=== PATIENT | female | born 1975 | race Caucasian/White ===

== ENCOUNTER → 2023-06-20 08:15 | Outpatient (REF) | payer MEDICARE, SELFPAY | LOC: RAD 08:15 | PROVIDERS: ATTENDING PHYSICIAN Internal Medicine Hematology & Oncology | DX: C92.10 Chronic myeloid leukemia, BCR/ABL-positive, not having achieved remission (principal); R06.02 Shortness of breath | CPT/HCPCS: 71046 ==

== ENCOUNTER 2023-07-30 19:21 | Emergency (ER) | payer MEDICARE, SELFPAY ==
[2023-07-30 19:25] VITALS: BP 143/96
[2023-07-30 19:53] LABS: % Basophils 0.8 % (0-2); % Eosinophils 1.1 % (0-6); % Immature Granulocytes 0.4 % (0-0.5); % Lymphocytes 17.1 % (20.5-51.1); % Monocytes 8.8 % (1.7-9.3); % Neutrophils 71.8 % (42.2-75.2); Absolute Basophils 0.1 10^3/uL (0-0.2); Absolute Eosinophils 0.1 10^3/uL (0-0.7); Absolute Lymphocytes 1.2 10^3/uL (1.2-3.4); Absolute Monocytes 0.6 10^3/uL (0.1-0.6); Absolute Neutrophils 5.2 10^3/uL (1.4-6.5); Hematocrit 41.9 % (37.0-47.0); Hemoglobin 13.4 g/dL (12.0-16.0); Mean Corpuscular Volume 87.5 fL (81.0-99.0); Mean Platelet Volume 9.9 fL (7.4-10.4); Nucleated Red Blood Cells % 0 %; Platelet Count 238 10^3/uL (130-400); Red Blood Cell Count 4.79 10^6/uL (4.20-5.40); Red Cell Dist. Width 14.8 % (11.5-14.5); White Blood Cell Count 7.2 10^3/uL (4.8-10.8)
[2023-07-30 20:03] LABS: INR 0.98; PT 12.8 Sec (11.4-14.6)
[2023-07-30 20:05] LABS: HCG, Serum Qualitative Screen Negative
[2023-07-30 20:08] LABS: ALT (SGPT) 18 U/L (0-35); AST (SGOT) 25 U/L (14-36); Albumin 4.1 g/dl (3.5-5.0); Alkaline Phosphatase 84 U/L (38-126); Blood Urea Nitrogen 15 mg/dl (7-17); Carbon Dioxide 25 mmol/L (22-30); Chloride 105 mmol/L (98-107); Glucose 88 mg/dl (70-99); Potassium 4.2 mmol/L (3.5-5.1); Sodium 135 mmol/L (135-145); Total Bilirubin 0.7 mg/dl (0.2-1.3); Total Protein 6.8 g/dl (6.3-8.2); eGFR > 60.00
[2023-07-30 20:20] LABS: Troponin I < 0.012 ng/ml
--- NOTE | 2023-07-30 22:02 | ED.GENMED ---
History of Present Illness
General
Chief Complaint: Chest Pain
Source: patient
Exam Limitations: none
Time Seen by Provider: 07/30/23 21:26
Nursing documentation reviewed up to this point in time: agreed with
Travel History
Have you had any contact with someone who has COVID-19?: No
Do you have any symptoms of coronavirus? Fever > 100 degrees, chills, cough, shortness of breath, sore throat, loss of taste or smell, muscle aches, or headache?: No
History of Present Illness
History of Present Illness:
47 y/o F with h/o CML, SAMUEL, HTN, gerd, migraines
here with multipe complaints ongoin gfor 3 weeks
pt says she has been feeling 'not well.' fatigued, some headaches, chest pressure
she takes her bp daily and her readings are 120/110, 130/90, etc
she used to be on amlodipine 5 bid and clonidine at night but she stopped the clonidine a eyar ago because she didn't feel like she needed it
she says that she has noticed her bps were elevated and was thinking that was why she wasn't feeling wel
but then she did noticed that all symptoms were worse over the past 3 days
worse generalized headache, fatigue, and she felt
Past History
Past History
ED Past Medical History: Asthma, Fibromyalgia, GERD and Other (Low back pain, spondylosis, CML); Negative IDDM or NIDDM
ED Past Surgical History: Cholecystectomy and Other (carpal tunnel surgery)
Social History
Tobacco: Smoker
Alcohol: Occasional
Personal:
Living: with family
Employment: Employed
Family History
Family History: Hypertension and Cancer
Review of Systems
Review of Systems
Allergies reviewed?: Yes
All Other Systems: Not applicable
Phy Exam
Physical Exam
Physical Exam:
GENERAL: Alert , in no apparent distress
HEAD: NCAT
EYE: pupils equal and reactive
NECK: Supple
ENT: o/p clr, mmm.
CARDIAC: Regular rate and rhythm .
chest: nontender
LUNGS: Clear breath sounds bilaterally, no acute respiratory distress, no wheezes/rales/rhonchi
ABDOMEN: Soft, without focal tenderness, no r/g, no cvat, normal bowel sounds
NEUROLOGICAL: Alert and oriented, no focal neuro deficits, cn intact, 5/5 strength, sensation intact, no focal deficits
SKIN: Warm and dry, skin intact.
MUSCULOSKELETAL: No edema, well perfused. neg lachelle's sign
PSYCH: Normal and appropriate interaction.
Scores
Heart Score for Chest Pain Patients
STEMI patient?: No
History: Slightly or Non-Suspicious
ECG: Nonspecific Repolarization
Age: >45 - <65 years
Risk Factors: 1 or 2 Risk Factors
Troponin: </= Normal Limit
Heart Score for Chest Pain Patients: 3
Heart Score Risk: 2.5% MACE over next 6 weeks
Course
Orders/Labs/Results
Orders:
Orders
07/30/23 19:30
Electrocardiogram (*1) Urgent
Reason for Study: Chest Pain
07/30/23 19:31
EKG- Treatment ONCE
Test Result ONCE
07/30/23 19:45
Complete Blood Count/With Diff Urgent
Comprehensive Metabolic Panel Urgent
HCG, Serum Qualitative Screen Urgent
Monotest Urgent
Comment: ADD ON
Prothrombin Time Urgent
Troponin I Urgent
07/30/23 22:00
Add On- LAB Urgent
Tests Added?: mononucleosis
07/30/23 22:16
CT Head W/o Iv Contrast Urgent
Comment:
Reason For Exam: headache, left sided weaknes x3 days
Acetaminophen [Tylenol] 1,000 mg PO NOW STA
07/31/23 00:02
CR Chest - 2 Views Urgent
Reason For Exam: pain
Abnormal Lab Results
07/30/23
19:45
MCHC 32.0 L g/dL
(33.0-37.0)
RDW 14.8 H %
(11.5-14.5)
Lymphocytes % 17.1 L %
(20.5-51.1)
07/30/23 19:45
07/30/23 19:45
Vital Signs
Temp: 99.1 F
Pulse: 84
Blood pressure: 121/84
Initial and Last Documented VS:
Initial Vital Signs
Temp Pulse Resp BP Pulse Ox
99.9 F 97 18 143/96 99
07/30/23 19:25 07/30/23 19:25 07/30/23 19:25 07/30/23 19:25 07/30/23 19:25
Last Documented Vital Signs
Temp Pulse Resp BP Pulse Ox
98.0 F 85 16 134/90 97
07/31/23 00:55 07/31/23 00:55 07/31/23 00:55 07/31/23 00:55 07/31/23 00:55
MDM/Problems Addressed
Differential Diagnosis Includes:
htn, viral syndrome, mono, uri,
MDM/Problems Addressed:
47 y/o F with h/o CML, gerd, htn, migraines
here with weeks of symptoms of generalized fatigue, some headaches, some chest pain which causes left arm and left leg weakness;
as far as she knows her CML is stable
she has been documenting bps beuase she thought that was causing her sypmtoms
bps are 120/110, 130/90s
some of the readings are unlikely to be accurate
instructed her to get a new cuff
on exam here her bp for me is normal 120/80
she is well appearing though she says she has a 10/10 headache
neur onitact
also having some subjective left sided weakness the past 3 days along with ehr headache
all symtoms have been present for at least 3 days
her ekg is unchanged nonischemic
trop x 1 neg an dwith symptoms for days this is reassuring to r/u ACS
wbc normal
cxr read indep by me and neg, though maybe subtle atelectasis in the right base
no coughing or cold symptoms ot suggest pna
headache improved with tylenol
head ct rquested by pt and was neg
d/c home, fu wiht pcp.
*Critical Care Note
Total Time (30-74mins, 75-104mins- exclusive of procedures): Not Applicable
ED Attending Note
-
Portions of this chart may have been created with voice recognition software.� Occasional wrong word or��sound alike� substitutions may have occurred due to the inherent limitations of voice recognition software.
Discharge Plan
Departure
Patient Disposition: Home (Routine Discharge)
Date of Disposition: 07/31/23
Time of Disposition: 00:40
Patient with high blood pressure during this ER visit?: Yes
Condition: Fair
Discharge Problem:
Fatigue, Chest pain, Headache
Instructions: Fatigue (DC), Chest Pain (DC)
Prescriptions:
No Action
clonidine HCl 0.3 MG tablet
0.1 mg PO HS
amlodipine [Norvasc] 5 MG tablet
5 mg PO BID
amitriptyline 25 MG tablet
50 mg PO HS
dasatinib [Sprycel] 100 MG tablet
100 mg PO DAILY
oxycodone [OxyContin] 10 MG tablet,oral only,ext.rel.12 hr
10 - 20 mg PO Q4HPRN PRN (Reason: Severe Pain)
ergocalciferol (vitamin D2) 50 MCG capsule
50,000 units PO MO
prednisone 20 MG tablet
60 mg PO DAILY
furosemide 20 MG tablet
20 - 40 mg PO DAILY PRN (Reason: swelling)
albuterol sulfate 1 PUFF HFA aerosol inhaler
2 puff inhalation R Q4HPRN PRN (Reason: asthma)
pregabalin 100 MG capsule
100 mg PO BID
cholecalciferol (vitamin D3) 2,000 UNITS tablet
2,000 units PO BID
Symbicort Inhaler
1 puff inhalation PRN PRN (Reason: sickness)
Patient Comments:
does not know dosage
Referrals:
Miya Emerson CRNP [Family Provider] - Follow up in 2-3 days
Activity Restrictions/Additional Instructions:
WE ARE NOT SURE THE CAUSE OF YOUR SYMPTOMS
YOU HAD NO SIGNS OF HEART ATTACK, STROKE, YOUR BLOOD WORK WAS NORMAL AND YOUR BLOOD PRESSURE CAME DOWN
MAKE SURE TO REPLACE YOUR BLOOD PRESSURE CUFF BECAUSE YOUR READINGS MAY BE OFF
FOLLOW UP WIHT YOUR ONCOLOGIST AND YOUR FAMILY DOCTOR FOR YOUR SYMPTOMS
RETURN FOR ANY CONCERNS.
Interventions
Interventions:
*Risk Screen - Suicide Last Done: 07/30/23 19:29
*General Assessment Last Done: 07/30/23 19:25
*Neglect/Abuse Screening Last Done: 07/30/23 19:25
ED- Fall Risk Assessment Last Done: 07/30/23 22:23
*ED COVID-19 Vaccine History Last Done: 07/30/23 23:23
*Nursing Disposition Last Done: 07/31/23 00:55
ED- Cardiac Assessment Last Done: 07/30/23 22:23
Discharge Date and Time
Discharge Date/Time: 07/31/23 00:56
[2023-07-30 22:23] VITALS: BMI 42.6
[2023-07-30] MEDS: TYLENOL 1000 MG PO (22:35)
[2023-07-30 22:40] LABS: Monotest Negative (Negative)
[2023-07-31 00:55] VITALS: BP 134/90
== END 2023-07-31 00:56 | disposition home or self-care (01) ==
LOC: EMR 19:21
PROVIDERS: Emergency Medicine; EMERGENCY PHYSICIAN Emergency Medicine; FAMILY PHYSICIAN Nurse Practitioner Family
DX: R07.89 Other chest pain (principal); C92.10 Chronic myeloid leukemia, BCR/ABL-positive, not having achieved remission; K75.81 Nonalcoholic steatohepatitis (NASH); I10 Essential (primary) hypertension; J45.909 Unspecified asthma, uncomplicated; M79.7 Fibromyalgia; K21.9 Gastro-esophageal reflux disease without esophagitis; Z82.49 Family history of ischemic heart disease and other diseases of the circulatory system; Z90.49 Acquired absence of other specified parts of digestive tract; F17.200 Nicotine dependence, unspecified, uncomplicated
CPT/HCPCS: 99284; 70450; 71046; 80053; 84484; 84703; 85025; 85610; 86308; 93005

== ENCOUNTER 2024-04-24 20:42 | Emergency (ER) | payer MEDICARE, SELFPAY ==
[2024-04-24 21:00] VITALS: BP 146/101
[2024-04-24 21:38] LABS: % Basophils 0.9 % (0-2); % Immature Granulocytes 0.3 % (0-0.5); % Lymphocytes 27.7 % (20.5-51.1); % Monocytes 7.3 % (1.7-9.3); % Neutrophils 60.8 % (42.2-75.2); Absolute Basophils 0.1 10^3/uL (0-0.2); Absolute Eosinophils 0.3 10^3/uL (0-0.7); Absolute Monocytes 0.8 10^3/uL (0.1-0.6); Absolute Neutrophils 6.6 10^3/uL (1.4-6.5); Hematocrit 41.3 % (37.0-47.0); Hemoglobin 13.4 g/dL (12.0-16.0); Mean Corp Hgb Conc. 32.4 g/dL (33.0-37.0); Mean Corpuscular Hgb 28.9 pg (27.0-31.0); Mean Corpuscular Volume 89.2 fL (81.0-99.0); Nucleated Red Blood Cells % 0 %; Platelet Count 321 10^3/uL (130-400); Red Blood Cell Count 4.63 10^6/uL (4.20-5.40); Red Cell Dist. Width 14.3 % (11.5-14.5); White Blood Cell Count 10.8 10^3/uL (4.8-10.8)
[2024-04-24 21:49] LABS: Urine Albumin Negative (Neg - Trace); Urine Bilirubin Negative (Negative); Urine Character Clear (Clear); Urine Color Straw; Urine Glucose Negative (Negative); Urine Ketone Negative (Negative); Urine Leukocyte Negative (Negative); Urine Nitrite Negative (Negative); Urine Occult Blood Negative (Negative); Urine Urobilinogen Negative (Neg - 1+)
[2024-04-24 22:04] LABS: ALT (SGPT) 20 U/L (0-35); AST (SGOT) 22 U/L (14-36); Albumin 4.4 g/dl (3.5-5.0); Alkaline Phosphatase 69 U/L (38-126); Blood Urea Nitrogen 11 mg/dl (7-17); Carbon Dioxide 32 mmol/L (22-30); Chloride 100 mmol/L (98-107); Glucose 102 mg/dl (70-99); Potassium 3.9 mmol/L (3.5-5.1); Sodium 139 mmol/L (135-145); Total Bilirubin 0.7 mg/dl (0.2-1.3); Total Protein 7.1 g/dl (6.3-8.2); Troponin I < 0.012 ng/ml; eGFR > 60.00
[2024-04-24 23:20] VITALS: BP 142/96
[2024-04-25] VITALS: BP 137/87
--- NOTE | 2024-04-25 00:16 | ED.GENMED ---
History of Present Illness
<JIMI Cho - Last Filed: 04/25/24 00:41>
General
Chief Complaint: Blood Pressure Problem
Source: patient
Time Seen by Provider: 04/25/24 00:02
Nursing documentation reviewed up to this point in time: agreed with
History of Present Illness
History of Present Illness:
Pt is a 48 yo F with a history of HTN, migraines, asthma, and GERD who presents to the emergency department for elevated blood pressure and chest pain. Pt states that her symptoms began about 3 weeks ago and that they have not been improving. She
states that at home she checked her BP and the readings have been in the 140s-150s/90s-100s. She states that when her BP is elevated, she has chest pain that radiates down to her left arm and left leg and has blurry vision. She states that currently
her chest feels like a pressure on her chest and rates it a 6/10. Pt also admits to having dyspnea and abdominal pain when she has the chest pain. Pt states that her symptoms are worse during activity and improve with rest. She denies fever, chills,
N/V/D, recent illness, or experiencing this before.
Pt states that she used to see cardiology and take amlodipine and clonidine. She states she has not taken the blood pressure medications in years as her doctor told her she didn't need to take them anymore.
In ED, patient's initial BP was 146/101
Past History
<JIMI Cho - Last Filed: 04/25/24 00:41>
Past History
ED Past Medical History: Asthma, Fibromyalgia, GERD and Other (Low back pain, spondylosis, CML); Negative IDDM or NIDDM
ED Past Surgical History: Cholecystectomy and Other (carpal tunnel surgery)
Social History
Tobacco: Smoker
Alcohol: Occasional
Personal:
Living: with family
Employment: Employed
Family History
Family History: Hypertension and Cancer
Review of Systems
<Breanna Arredondo [facility] [place] - Last Filed: 04/25/24 00:41>
Review of Systems
Allergies reviewed?: Yes
Constitutional: Reports no symptoms
EENT: Reports no symptoms
Respiratory: Reports no symptoms
Cardiac: Reports chest pain and other (shortness of breath)
ABD/GI: Reports abdominal pain
: Reports no symptoms
Phy Exam
<Breanna Arredondo [facility] [place] - Last Filed: 04/25/24 00:41>
General Physical Exam
General Presentation: well appearing and no apparent distress
General age: appears stated age
General Skin: warm
General Habitus: normal
General Mental: alert
General Hydration: appears well hydrated
Cardiovascular Exam
Cardiovascular Exam: regular rate/rhythm
Pulmonary Exam
Pulmonary Exam: lungs clear
Gastrointestinal Exam
Gastrointestinal Exam: non tender, soft and non distended
Course
<Breanna Arredondo [facility] [place] - Last Filed: 04/25/24 00:41>
Orders/Labs/Results
Orders:
Orders
04/24/24 20:43
EKG [Electrocardiogram (*1)] Urgent
Reason for Study: Chest Pain
EKG- Treatment ONCE
04/24/24 21:18
Complete Blood Count/With Diff Urgent
Comprehensive Metabolic Panel Urgent
Troponin I Urgent
UA Reflex to Culture [Urinalysis Reflex To Culture] Urgent
Date Specimen was Collected: 04/24/24
Time Specimen was Collected: 21:04
Abnormal Lab Results
04/24/24
21:18
MCHC 32.4 L g/dL
(33.0-37.0)
Absolute Neuts (auto) 6.6 H 10^3/uL
(1.4-6.5)
Absolute Monos (auto) 0.8 H 10^3/uL
(0.1-0.6)
Carbon Dioxide 32 H mmol/L
(22-30)
Glucose 102 H mg/dl
(70-99)
04/24/24 21:18
04/24/24 21:18
Vital Signs
Initial and Last Documented VS:
Initial Vital Signs
Temp Pulse Resp BP Pulse Ox
98.2 F 88 16 146/101 100
04/24/24 21:00 04/24/24 21:00 04/24/24 21:00 04/24/24 21:00 04/24/24 21:00
Last Documented Vital Signs
Temp Pulse Resp BP Pulse Ox
98.2 F 73 34 137/87 99
04/24/24 21:00 04/25/24 00:00 04/25/24 00:00 04/25/24 00:00 04/25/24 00:00
<Shweta Srinivasan, DO - Last Filed: 04/25/24 00:59>
Orders/Labs/Results
Orders:
Orders
04/24/24 20:43
EKG [Electrocardiogram (*1)] Urgent
Reason for Study: Chest Pain
EKG- Treatment ONCE
04/24/24 21:18
Complete Blood Count/With Diff Urgent
Comprehensive Metabolic Panel Urgent
Troponin I Urgent
UA Reflex to Culture [Urinalysis Reflex To Culture] Urgent
Date Specimen was Collected: 04/24/24
Time Specimen was Collected: 21:04
Abnormal Lab Results
04/24/24
21:18
MCHC 32.4 L g/dL
(33.0-37.0)
Absolute Neuts (auto) 6.6 H 10^3/uL
(1.4-6.5)
Absolute Monos (auto) 0.8 H 10^3/uL
(0.1-0.6)
Carbon Dioxide 32 H mmol/L
(22-30)
Glucose 102 H mg/dl
(70-99)
04/24/24 21:18
04/24/24 21:18
Vital Signs
Initial and Last Documented VS:
Initial Vital Signs
Temp Pulse Resp BP Pulse Ox
98.2 F 88 16 146/101 100
04/24/24 21:00 04/24/24 21:00 04/24/24 21:00 04/24/24 21:00 04/24/24 21:00
Last Documented Vital Signs
Temp Pulse Resp BP Pulse Ox
98.2 F 73 34 137/87 99
04/24/24 21:00 04/25/24 00:00 04/25/24 00:00 04/25/24 00:00 04/25/24 00:00
<JIMI Cho - Last Filed: 04/25/24 00:41>
MDM/Problems Addressed
Differential Diagnosis Includes:
ACS, ND, GERD
<JIMI Cho - Last Filed: 04/25/24 00:41>
*Critical Care Note
Total Time (30-74mins, 75-104mins- exclusive of procedures): Not Applicable
<Shweta Srinivasan DO - Last Filed: 04/25/24 00:59>
*Pulse Oximetry
Patient hypoxic: no
*EKG
Interpreted by ED Provider?: Yes
Interpretation: normal
Comparison EKG: no changes (Unchanged from previous July 2023)
Rate: normal
Rhythm: sinus
[place]: normal axis
Interval: normal interval
QRS Pattern: normal QRS
Ischemia: no ischemia
*Sql Ssrs Developer Interpretation
Rate: normal
Interpretation: normal
Rhythm: sinus
ED Attending Note
<JIMI Cho - Last Filed: 04/25/24 00:41>
-
Portions of this chart may have been created with voice recognition software.� Occasional wrong word or��sound alike� substitutions may have occurred due to the inherent limitations of voice recognition software.
<Shweta Srinivasan DO - Last Filed: 04/25/24 00:59>
ED Attending Note
Patient seen and examined by attending physician: Yes
I performed the substantive portion of visit, reviewed & personally made and approve the management plan that is documented in note by myself or LEON.: Yes
ED Attending Note:
This is a 48-year-old woman with history of asthma, hypertension, GERD, CML chronically maintained on Sprycel, obesity, fibromyalgia. Had previously been maintained on amlodipine as well as clonidine but these medications were discontinued at least
2 years ago. She complains of at least 4-week history of substernal chest discomfort, ache as well as concern for elevated blood pressure generally in the 140s to 150s over 90s to 100s. She admits that blood pressure is higher when she was up and
about, improves, normalizes when she lies down. She also notes intermittent generalized headache which is temporized with Tylenol.
She has had no shortness of breath, no cough, no congestion, no fever, no dizziness nor lightheadedness, no weakness or numbness.
She does follow regularly with PCP with most recent visit April 02. She is chronically maintained on phentermine for weight loss. Was prescribed Zepbound during that office visit but has not started this, not approved by her insurance.
Prior records reviewed. Patient evaluated in this ED July of this year for very similar complaint. Unremarkable evaluation at that time including unremarkable laboratory studies, EKG, chest x-ray as well as CT of the head.
GENERAL: 48-year-old woman appears her stated age, awake and alert, easily communicative and appears in no acute distress. Initial blood pressure 146/100, has improved without intervention to 137/87.
EYE: pupils equal and reactive. Extraocular muscles intact. Anicteric
NECK: Supple, nontender, no meningismus, no significant adenopathy. No JVD.
ENT: posterior pharynx is clear, oral mucosa is moist. TM clear b/l, nares patent.
CARDIAC: Regular rate and rhythm. no murmur.
LUNGS: Clear breath sounds bilaterally, no acute respiratory distress, no wheezes/rales/rhonchi
ABDOMEN: Soft, nondistended, without focal tenderness, no r/g. normoactive BS.
NEUROLOGICAL: Alert and oriented x3, no focal neuro deficits. Gait is steady.
SKIN: Warm and dry, normal color, skin intact. No rash.
MUSCULOSKELETAL: No C/C/E. peripheral pulses are full and equal b/l. No palpable tenderness.
PSYCH: Normal and appropriate interaction.
Patient presents with 4-week history of chest discomfort, concern for hypertension, intermittent headaches.
Similar complaint noted during ED visit July 2023.
Prior history of hypertension, has not required hypertensive medicines for at least the past 2 years.
Concern for hypertension causing end-organ damage however overall nontoxic in appearance. Blood pressure has normalized and reportedly normal blood pressure during PCP visit last month.
EKG within normal limits and unchanged from previous July 2023.
Labs are unremarkable including negative troponin. With ongoing chest discomfort for a month, normal EKG and normal troponin, ACS is unlikely.
Normal renal function, normal chemistries.
History of CML with normal white blood cell count, normal differential. She has had no fever and nothing in history to suggest infectious process.
It is reassuring that blood pressure is normalized and recommend she continue to monitor her blood pressure at home but only after she sits and rests for at least 5 minutes.
Recommend continuing Tylenol as needed for headache as this appears to be tension type headache and headache resolved with Tylenol.
No focal neurodeficits. Overall well in appearance and unremarkable CT of the head July of this year. At this point no indication to repeat CT.
I do recommend she follow-up promptly with PCP for recheck.
Return precautions discussed.
Discharge Plan
Departure
Patient Disposition: Home (Routine Discharge)
Date of Disposition: 04/25/24
Time of Disposition: 00:50
Patient with high blood pressure during this ER visit?: No
Condition: Good
Discharge Problem:
Elevated blood pressure reading, Nonspecific chest pain
Instructions: Chest Pain PCP Follow Up, High Blood Pressure (DC)
Prescriptions:
No Action
clonidine HCl 0.3 MG tablet
0.1 mg PO HS
amlodipine [Norvasc] 5 MG tablet
5 mg PO BID
amitriptyline 25 MG tablet
50 mg PO HS
dasatinib [Sprycel] 100 MG tablet
100 mg PO DAILY
oxycodone [OxyContin] 10 MG tablet,oral only,ext.rel.12 hr
10 - 20 mg PO Q4HPRN PRN (Reason: Severe Pain)
ergocalciferol (vitamin D2) 50 MCG capsule
50,000 units PO MO
prednisone 20 MG tablet
60 mg PO DAILY
furosemide 20 MG tablet
20 - 40 mg PO DAILY PRN (Reason: swelling)
albuterol sulfate 1 PUFF HFA aerosol inhaler
2 puff inhalation R Q4HPRN PRN (Reason: asthma)
pregabalin 100 MG capsule
100 mg PO BID
cholecalciferol (vitamin D3) 2,000 UNITS tablet
2,000 units PO BID
Symbicort Inhaler
1 puff inhalation PRN PRN (Reason: sickness)
Patient Comments:
does not know dosage
Referrals:
Miya Emerson CRNP [Family Provider] -
Interventions
Interventions:
*Risk Screen - Suicide Last Done: 04/24/24 21:00
*General Assessment Last Done: 04/24/24 21:00
*Neglect/Abuse Screening Last Done: 04/24/24 21:00
ED- Fall Risk Assessment Last Done: 04/24/24 23:18
*ED COVID-19 Vaccine History Last Done: 04/24/24 23:23
ED- Cardiac Assessment Last Done: 04/24/24 23:18
ED- Neurological Assessment Last Done: 04/24/24 23:18
ED- Pulmonary Assessment Last Done: 04/24/24 23:18
Discharge Date and Time
Print Language: JAPANESE
== END 2024-04-25 01:34 | disposition home or self-care (01) ==
LOC: EMR 20:42
PROVIDERS: Emergency Medicine; EMERGENCY PHYSICIAN Emergency Medicine; FAMILY PHYSICIAN Nurse Practitioner Family
DX: R07.89 Other chest pain (principal); I10 Essential (primary) hypertension; J45.909 Unspecified asthma, uncomplicated; K21.9 Gastro-esophageal reflux disease without esophagitis; F17.200 Nicotine dependence, unspecified, uncomplicated
CPT/HCPCS: 99284; 80053; 81003; 84484; 85025; 93005